=== PATIENT | male | born 1955 | race Two or more races ===

== ENCOUNTER 2017-12-10 11:42 | Outpatient (CLI) | payer OTHER ==
[~2017-12-10 11:42] MED LIST: AVAPRO150 MG; LEVAQUIN500 MG PO; TUSSI PRES-B L120 M1 PO; VALTREX1000 MG; WELLBUTRIN75 MG; ZYRTEC10 M3 PO
== END 2017-12-10 15:03 | disposition home or self-care (01) ==
LOC: TOM 11:42
DX: D10.4 Benign neoplasm of tonsil (principal); R59.0 Localized enlarged lymph nodes

== ENCOUNTER 2017-12-17 14:01 | Outpatient (CLI) | payer OTHER | END 2017-12-17 14:43 | disposition home or self-care (01) | LOC: NUCLEAR 14:01 | DX: I82.612 Acute embolism and thrombosis of superficial veins of left upper extremity (principal) ==

== ENCOUNTER 2017-12-17 15:09 | Outpatient (CLI) | payer OTHER | END 2017-12-17 15:18 | disposition home or self-care (01) | LOC: SONOGRAMA 15:09 | DX: E04.1 Nontoxic single thyroid nodule (principal); E11.9 Type 2 diabetes mellitus without complications ==

== ENCOUNTER 2017-12-19 14:52 | Outpatient (CLI) | payer OTHER | END 2017-12-19 15:00 | disposition home or self-care (01) | LOC: LAB 14:52 | DX: E78.1 Pure hyperglyceridemia (principal); Z12.9 Encounter for screening for malignant neoplasm, site unspecified; Z13.9 Encounter for screening, unspecified; Z02.1 Encounter for pre-employment examination ==

== ENCOUNTER 2018-01-14 14:20 | Outpatient (CLI) | payer OTHER | END 2018-01-14 14:35 | disposition home or self-care (01) | LOC: SONOGRAMA 14:20 | DX: M75.101 Unspecified rotator cuff tear or rupture of right shoulder, not specified as traumatic (principal) ==

== ENCOUNTER 2018-01-17 08:29 | Outpatient (CLI) | payer OTHER | END 2018-01-17 08:37 | disposition home or self-care (01) | LOC: NUCLEAR 08:29 | DX: C09.8 Malignant neoplasm of overlapping sites of tonsil (principal) | CPT/HCPCS: 78815; A9552 ==

== ENCOUNTER 2018-02-18 10:57 | Outpatient (CLI) | payer OTHER | END 2018-02-18 11:07 | disposition home or self-care (01) | LOC: RAD 10:57 | DX: R50.9 Fever, unspecified (principal) ==

== ENCOUNTER 2018-02-18 11:56 | Outpatient (CLI) | payer OTHER | END 2018-02-18 12:03 | disposition home or self-care (01) | LOC: LAB 11:56 | DX: N41.8 Other inflammatory diseases of prostate (principal); N39.0 Urinary tract infection, site not specified ==

== ENCOUNTER 2018-07-22 10:20 | Outpatient (CLI) | payer OTHER | END 2018-07-22 12:35 | disposition home or self-care (01) | LOC: LAB 10:20 | DX: C09.0 Malignant neoplasm of tonsillar fossa (principal) ==

== ENCOUNTER 2018-07-22 12:00 | Outpatient (CLI) | payer OTHER | END 2018-07-22 17:00 | disposition home or self-care (01) | LOC: TOM 12:00 | DX: C09.0 Malignant neoplasm of tonsillar fossa (principal) ==

== ENCOUNTER 2018-07-25 10:03 | Outpatient (CLI) | payer OTHER | END 2018-07-25 10:24 | disposition home or self-care (01) | LOC: NUCLEAR 10:03 | DX: C11.0 Malignant neoplasm of superior wall of nasopharynx (principal); Z08 Encounter for follow-up examination after completed treatment for malignant neoplasm | CPT/HCPCS: 78815; A9552 ==

== ENCOUNTER 2019-05-11 11:27 | Outpatient (CLI) | payer OTHER | END 2019-05-11 11:36 | disposition home or self-care (01) | LOC: TOM 11:27 | DX: C09.0 Malignant neoplasm of tonsillar fossa (principal) ==

== ENCOUNTER → 2019-05-11 11:53 | Outpatient (CLI) | payer OTHER | END | disposition home or self-care (01) | LOC: LAB 11:53 | DX: N20.0 Calculus of kidney (principal) ==

== ENCOUNTER 2020-04-06 10:40 | Outpatient (CLI) | payer OTHER | END 2020-04-06 10:51 | disposition HB | LOC: MRI 10:40 | DX: M19.011 Primary osteoarthritis, right shoulder (principal); M75.121 Complete rotator cuff tear or rupture of right shoulder, not specified as traumatic; M75.112 Incomplete rotator cuff tear or rupture of left shoulder, not specified as traumatic | CPT/HCPCS: 73218 ==

== ENCOUNTER → 2020-09-08 | Outpatient (CLI) | payer OTHER | END | disposition home or self-care (01) | LOC: TOM 13:15 | DX: J01.81 Other acute recurrent sinusitis (principal); J32.0 Chronic maxillary sinusitis ==

== ENCOUNTER 2021-05-18 17:06 | Emergency (ER) | payer OTHER ==
[~2021-05-18] VITALS: Ht 172.7 cm; Wt 84.4 kg
[2021-05-18] MEDS ORDERED: ISENTRESS HD600 MG PO (17:15)
== END 2021-05-18 21:40 | disposition home or self-care (01) ==
LOC: ER 17:06
DX: S01.81XA Laceration without foreign body of other part of head, initial encounter (principal); W18.30XA Fall on same level, unspecified, initial encounter; Y92.018 Other place in single-family (private) house as the place of occurrence of the external cause